=== PATIENT | female | born 1975 | race Caucasian/White ===

== ENCOUNTER 2016-05-05 22:04 | Emergency (ER) | payer MEDICAID, OTHER ==
[~2016-05-05] VITALS: Ht 162.6 cm; Wt 139.5 kg
[2016-05-05 22:08] VITALS: Ht 162.6 cm; Wt 139.5 kg
[2016-05-05] MEDS ORDERED: ELIM TOP (23:20)
[2016-05-05] MEDS ORDERED: BEN25 PO (23:20)
--- NOTE | 2016-05-05 23:42 | ERD ---
ER Documentation Chief Complaint Date/Time DATE: 05/05/16 TIME: 23:40 Chief Complaint scaterred body rashes x 2 days HPI 40-year-old female comes in with a pruritic rash 2 days, started on her left arm and and is now on her cheeks. She states that it is now on her chest as well. She denies any new foods, medications, lotions, creams or allergens. She states it started in her left arm is linear, then she touched her cheek that caused erythema and itching there as well. She has not tried anything for this rash so far. ROS All systems reviewed and are negative except as per history of present illness. Medications Home Meds Active Scripts Diphenhydramine Hcl* (Benadryl*) 25 Mg Cap, 25 MG PO Q6, #30 CAP Prov:CYNDIE MILIAN PA-C 05/05/16 Permethrin* (Elimite*) 5% Cr, 1 APPLIC TOP ONCE, #1 TUB Prov:CYNDIE MILIAN PA-C 05/05/16 Allergies Allergies: Coded Allergies: No Known Allergy (Unverified , 03/30/13) PMhx/Soc History of Surgery: No Anesthesia Reaction: No Hx Neurological Disorder: No Hx Respiratory Disorders: No Hx Cardiac Disorders: No Hx Psychiatric Problems: No Hx Miscellaneous Medical Probl: No (DENIES MED AND SURGICAL HX.) Hx Alcohol Use: No Hx Substance Use: No Hx Tobacco Use: No Smoking Status: Never smoker Physical Exam Vitals Vital Signs Date Time Temp Pulse Resp B/P Pulse Ox O2 Delivery O2 Flow Rate FiO2 05/05/16 22:08 98.1 89 20 128/75 100 Physical Exam Const: Well-developed, well-nourished, in no acute distress. HEENT: Atraumatic. Normal Conjunctiva. Neck is supple. No scleral icterus. No meningismus. Resp: Clear to auscultation bilaterally Cardio: Regular rate and rhythm, no murmurs Abd: Nondistended. Skin: Linear rash is erythematous, macular on the dorsal aspect of the left forearm, there are 2 circular areas of erythema on on each cheek on the left and right. Scattered on the trunk as well, rashes blanchable. No vesicles. Ext: No cyanosis, or edema Neur: Awake and alert, appropriate for age Psych: Normal Mood and Affect Procedures/MDM 40-year-old female comes in with rash, dermatitis that appears to be nonspecific. Differentials include contact dermatitis versus allergy, however there is a linear pattern to the rash. Patient will be treated for possibly early scabies given the presentation on her arm, spreading to the chest and she states that the rash started on her cheeks after she touched them. No signs of any cellulitis, abscess, shingles. Departure Diagnosis: Primary Impression: Rash Condition: Good Patient Instructions: Scabies, Dermatitis, Non-Specific Additional Instructions: Call your primary care doctor TOMORROW for an appointment during the next 1-2 days.See the doctor sooner or return here if your condition worsens before your appointment time. CYNDIE MILIAN PA-C May 05, 2016 23:42
== END 2016-05-05 23:37 | disposition home or self-care (01) ==
LOC: FTE 22:04
DX: R21 Rash and other nonspecific skin eruption (principal)
CPT/HCPCS: 99283

== ENCOUNTER 2016-08-18 18:17 | Emergency (ER) | payer MEDICAID ==
[~2016-08-18] VITALS: Ht 170.2 cm; Wt 139.0 kg
[~2016-08-18 18:17] MED LIST: BEN25 PO; ELIM TOP
[2016-08-18 18:19] VITALS: Ht 170.2 cm; Wt 139.0 kg
--- NOTE | 2016-08-18 19:51 | ERD ---
ER Documentation Chief Complaint Date/Time DATE: 08/18/16 TIME: 19:48 Chief Complaint 9/10 left breast pain x 2 days HPI Patient is a 41-year-old female with no past medical history who presents to the ED with left breast pain 2 days. She states that she feels a lump and redness on the inferior part of her breasts. She denies fever or chills. She denies vomiting or diarrhea. Denies headache or dizziness. Denies chest pain or cough or shortness of breath. States that it is tender when she applies pressure to the area. She states that she had a mammogram 1 year ago and was within normal limits. She has no other complaints. ROS All systems reviewed and are negative except as per history of present illness. Medications Home Meds Active Scripts Diphenhydramine Hcl* (Benadryl*) 25 Mg Cap, 25 MG PO Q6, #30 CAP Prov:CYNDIE MILIAN PA-C 05/05/16 Permethrin* (Elimite*) 5% Cr, 1 APPLIC TOP ONCE, #1 TUB Prov:CYNDIE MILIAN PA-C 05/05/16 Allergies Allergies: Coded Allergies: No Known Allergy (Unverified , 03/30/13) PMhx/Soc History of Surgery: No Anesthesia Reaction: No Hx Neurological Disorder: No Hx Respiratory Disorders: No Hx Cardiac Disorders: No Hx Psychiatric Problems: No Hx Miscellaneous Medical Probl: No (DENIES MED AND SURGICAL HX.) Hx Alcohol Use: No Hx Substance Use: No Hx Tobacco Use: No FmHx Family History: No coronary disease, No diabetes, No other Physical Exam Vitals Vital Signs Date Time Temp Pulse Resp B/P Pulse Ox O2 Delivery O2 Flow Rate FiO2 08/18/16 18:19 98.6 88 18 128/72 96 Physical Exam GENERAL: Well-developed, well-nourished obese female. Appears in no acute distress. HEAD: Normocephalic, atraumatic. EYES: Pupils are equally reactive bilaterally. EOMs grossly intact. No conjunctival erythema. ENT: Moist mucous membranes. No uvula deviation. No kissing tonsils. No exudates. NECK: Supple. No lymphadenopathy or thyromegaly. No meningismus. negative kernig. negative brudinski. LUNG: Clear to auscultation bilaterally. No rhonchi, wheezing, rales or coarse breath sounds. HEART: Regular rate and rhythm. No murmurs, rubs or gallops. BREAST: 2 cm area of Erythema and warmth to the inferior fold of the left breast. Tenderness. No drainage. Extremities: Equal pulses bilaterally. No peripheral clubbing, cyanosis or edema. No unilateral leg swelling. NEUROLOGIC: Alert and oriented. Moving all four extremities. 5/5 strength in all extremities. Normal speech. Steady gait. SKIN: Normal color. Warm and dry. No rashes or lesions. Capillary refill < 2 seconds Results 24 hrs Current Medications Medications (Trade) Dose Ordered Sig/Alden Route PRN Reason Start Time Stop Time Status Last Admin Dose Admin Acetaminophen (Tylenol Tab) 650 mg ONCE ONCE PO 08/18/16 20:00 08/18/16 20:01 Procedures/MDM ER COURSE: I kept the patient and/or family informed of laboratory and diagnostic imaging results throughout the emergency room course. MEDICAL DECISION MAKING: This is a 41-year-old who presents with left breast pain 2 days. Vital signs were reviewed. Patient is afebrile. Patient is not hypoxic. Patient is nontoxic or ill-appearing. Patient likely has early cellulitis of her left breast. I do not think an ultrasound or further imaging studies is necessary at this time. Low suspicion for necrotizing fasciitis, SJS, toxic epidermal necrolysis, Kawasaki, erythema multiforme, gangrene, scarlet fever, meningococcemia, sepsis, anaphylaxis, sepsis, deep space infection, or foreign body. DISCHARGE: At this time, patient is stable for discharge and outpatient management with no new complaints during the ER course. Patient was sent home with Bactrim, Keflex and Tylenol. Patient will be discharged home with instructions to recheck for new or worsening symptoms such as fever, nausea, weakness, LOC and to follow up with primary care in the next 1-2 days. Patient was advised to return to the ER for any new or worsening symptoms. Plan was discussed and patient and/or family understands and agrees. Home instructions were given. Departure Diagnosis: Primary Impression: Breast pain Condition: Stable KLAUDIA TENORIO PA-C Aug 18, 2016 19:51
[2016-08-18] MEDS ORDERED: SULF1TAB31 PO (19:52)
[2016-08-18] MEDS ORDERED: ACET500C5 PO (19:52)
[2016-08-18] MEDS ORDERED: CEPH-443 PO (19:52)
[2016-08-18] MEDS ORDERED: ACETAMINOPHEN 325 MG TAB PO ONE (20:00)
== END 2016-08-18 20:06 | disposition home or self-care (01) ==
LOC: FTE 18:17
DX: N64.4 Mastodynia (principal)
CPT/HCPCS: Z7502; Z7610; 99284

== ENCOUNTER 2016-12-14 17:26 | Emergency (ER) | payer MEDICAID, OTHER ==
[~2016-12-14] VITALS: Ht 170.2 cm; Wt 130.0 kg
[~2016-12-14 17:26] MED LIST changes: +ACET500C5 PO; +CEPH-443 PO; +SULF1TAB31 PO
[2016-12-14 17:29] VITALS: Ht 170.2 cm; Wt 130.0 kg
[2016-12-14] MEDS ORDERED: ACETAMINOPHEN 500 MG TAB PO STA (19:34)
[2016-12-14] MEDS ORDERED: ONDANSETRON (ODT) 4 MG TAB ODT STA (19:37)
[2016-12-14] MEDS ORDERED: IBUPROFEN 600 MG TAB PO ONE (20:00)
[2016-12-14] MEDS ORDERED: ONDA4TAB14 PO (20:16)
[2016-12-14] MEDS ORDERED: CEPH-443 PO (20:16)
[2016-12-14] MEDS ORDERED: IBUP-1542 PO (20:16)
[2016-12-14] MEDS ORDERED: LIDOCAINE 1% (MDV) 20 ML INJ IM ONE (20:30)
[2016-12-14] MEDS ORDERED: CEFTRIAXONE 1 GM INJ IM ONE (20:30)
--- NOTE | 2016-12-14 20:31 | ERD ---
ER Documentation Chief Complaint Chief Complaint fever , vomiting ,headcahe since yesterday HPI 41-year-old female comes in with history of fever, headache, vomiting that started yesterday. She describes nausea vomiting with a frontal headache that is throbbing, and fever has been treated with ibuprofen but the last dose was this morning. She denies flulike symptoms, cough, sore throat, runny nose. Denies chest pain, shortness breath, abdominal pain. She denies flank pain or hematuria. ROS All systems reviewed and are negative except as per history of present illness. Medications Home Meds Active Scripts Ondansetron (Ondansetron Odt) 4 Mg Tab.rapdis, 4 MG PO Q6H Y for NAUSEA AND/OR VOMITING, #10 TAB Prov:CYNDIE MILIAN PA-C 12/14/16 Ibuprofen* (Motrin*) 600 Mg Tab, 600 MG PO Q6, #30 TAB Prov:CYNDIE MILIAN PA-C 12/14/16 Cephalexin* (Keflex*) 500 Mg Capsule, 500 MG PO QID for 10 Days, CAP Prov:CYNDIE MILIAN PA-C 12/14/16 Acetaminophen* (Tylophen*) 500 Mg Capsule, 1 CAP PO Q6H Y for PAIN AND OR ELEVATED TEMP, #20 CAP Prov:KLAUDIA TENORIO PA-C 08/18/16 Cephalexin* (Keflex*) 500 Mg Capsule, 500 MG PO QID for 7 Days, CAP Prov:KLAUDIA TENORIO PA-C 08/18/16 Sulfamethoxazole/Trimethoprim* (Bactrim Ds* Tablet) 1 Each Tablet, 1 TAB PO BID , #14 TAB Prov:KLAUDIA TENORIO PA-C 08/18/16 Diphenhydramine Hcl* (Benadryl*) 25 Mg Cap, 25 MG PO Q6, #30 CAP Prov:CYNDIE MILIAN PA-C 05/05/16 Permethrin* (Elimite*) 5% Cr, 1 APPLIC TOP ONCE, #1 TUB Prov:CYNDIE MILIAN PA-C 05/05/16 Allergies Allergies: Coded Allergies: No Known Allergy (Unverified , 03/30/13) PMhx/Soc History of Surgery: No Anesthesia Reaction: No Hx Neurological Disorder: No Hx Respiratory Disorders: No Hx Cardiac Disorders: No Hx Psychiatric Problems: No Hx Miscellaneous Medical Probl: No (DENIES MED AND SURGICAL HX.) Hx Alcohol Use: No Hx Substance Use: No Hx Tobacco Use: No Smoking Status: Never smoker Physical Exam Vitals Vital Signs Date Time Temp Pulse Resp B/P Pulse Ox O2 Delivery O2 Flow Rate FiO2 12/14/16 20:57 100.1 89 18 127/68 97 12/14/16 17:29 101.6 114 18 133/72 97 Physical Exam General: Obese female, no acute distress. HEENT: Head is normocephalic, atraumatic. No scleral icterus. Pupils are equal , round, and reactive. Oral mucous membranes are moist. No pharyngeal erythema. Neck: Supple. Nontender. Lungs: Clear to auscultation. Normal air movement. Heart: Regular rate and rhythm. S1 and S2 are normal. No murmurs, gallops, or rubs. Abdomen: Soft, nontender, nondistended. Bowel sounds are normoactive. Extremities: No clubbing or cyanosis. Normal pulses. Moving extremities x 4. No weakness. Neurologic: Alert and oriented 3. No focal deficits. Skin: Normal turgor. No rash or lesions. Results 24 hrs Laboratory Tests Test 12/14/16 19:39 Urine Color YELLOW Urine Clarity CLEAR Urine pH 7.0 Urine Specific [place] 1.004 Urine Ketones 1+mg/dL Urine Nitrite POSITIVEmg/dL Urine Bilirubin NEGATIVEmg/dL Urine Urobilinogen NEGATIVEmg/dL Urine Leukocyte Esterase 2+Red/ul Urine Microscopic RBC 1/HPF Urine Microscopic WBC 72/HPF Urine Bacteria FEW/HPF Urine Hemoglobin 1+mg/dL Urine Glucose NEGATIVEmg/dL Urine Total Protein NEGATIVEmg/dl Urine Test NEGATIVE Current Medications Medications (Trade) Dose Ordered Sig/Alden Route PRN Reason Start Time Stop Time Status Last Admin Dose Admin Acetaminophen (Tylenol Tab) 1,000 mg ONCE STAT PO 12/14/16 19:34 12/14/16 19:36 DC 12/14/16 19:46 Ibuprofen (Motrin) 600 mg ONCE ONCE PO 12/14/16 20:00 12/14/16 20:01 DC 12/14/16 19:46 Ondansetron HCl (Zofran Odt) 8 mg ONCE STAT ODT 12/14/16 19:37 12/14/16 19:38 DC 11/2/17 19:46 Ceftriaxone Sodium (Rocephin) 1 gm ONCE ONCE IM 12/14/16 20:30 12/14/16 20:31 DC 12/14/16 20:35 Lidocaine (Xylocaine 1% (Mdv) 20 ml) 1 ml ONCE ONCE IM 12/14/16 20:30 12/14/16 20:31 DC Procedures/MDM ED course: She was given Tylenol 1 g, Motrin, and Zofran. Patient was given Rocephin 1 g IM. Medical decision makin-year-old female comes in with a urinary tract infection and fever. Patient presents with a history of headache and vomiting but appears well, without any signs of toxic appearance. She does not have any abdominal pain, hematuria or flank pain, I doubt septic kidney stone, obstructing kidney stone. She comes in with a history of fever and vomiting was treated with Tylenol, ibuprofen and Zofran and feels much better at this time. No signs of sepsis. Patient's presents with a fever with associated tachycardia given that she has not tried taking any Tylenol or ibuprofen since this morning. She was treated here with improved vital signs and stable for discharge. Departure Diagnosis: Primary Impression: UTI (urinary tract infection) Condition: Good Patient Instructions: Understanding Urinary Tract Infections (UTIs) CYNDIE MILIAN PA-C Dec 14, 2016 20:31
[2016-12-14 20:57] VITALS: BP 127/68; PULSE 89; RESP 18; TEMP 100.1
== END 2016-12-14 20:59 | disposition home or self-care (01) ==
LOC: FTE 17:26
DX: N39.0 Urinary tract infection, site not specified (principal)
CPT/HCPCS: 81001; 84703; 96372; J0696

== ENCOUNTER 2017-10-28 12:23 | Emergency (ER) | END 2017-10-28 15:00 | disposition home or self-care (01) ==